=== PATIENT | female | born 1935 | race Two or more races ===

== ENCOUNTER 2019-12-12 08:54 | Day surgery (SDC) | payer OTHER, BC ==
[2019-12-08 15:52] VITALS: BMI 30.7
[2019-12-12 10:27] VITALS: TEMP 97.6
[2019-12-12 17:57] VITALS: BP 143/68; PULSE 83
== END 2019-12-12 10:55 | disposition home or self-care (01) ==
LOC: JASU-ENDO 08:54
PROVIDERS: ATTEND Internal Medicine Gastroenterology
PROC: 0DJD8ZZ Inspection of Lower Intestinal Tract, Via Natural or Artificial Opening Endoscopic (ICD-10-PCS; principal; 2019-12-12 09:00)
DX: D64.9 Anemia, unspecified (principal); K57.30 Diverticulosis of large intestine without perforation or abscess without bleeding; I10 Essential (primary) hypertension; E11.9 Type 2 diabetes mellitus without complications; K21.9 Gastro-esophageal reflux disease without esophagitis; E66.9 Obesity, unspecified

== ENCOUNTER 2021-02-04 10:17 | Inpatient (IN) | payer BC, OTHER ==
[2021-02-04] MEDS ORDERED: SODIUM CHLORIDE 1,000 ML IV STA (11:28)
[2021-02-04 11:52] LABS: BASO % 0.7 % (0-2.0); EOS % 0.4 % (0-4.5); HEMOGLOBIN 14.5 GM/dL (10.7-15.3); LYMPH % 8.9 % (8-40); MCHC 33.6 g/dl (32.0-36.0); MEAN CELL VOLUME 80.5 fl (80-96); MONO % 4.7 % (3.8-10.2); NEUT % 85.3 % (42.8-82.8); PLATELET COUNT 334 K/MM3 (134-434); RBC 5.35 M/mm3 (3.60-5.2); RDW 15.6 % (11.6-15.6)
[2021-02-04 12:12] LABS: CHLORIDE 90 mmol/L (98-107); POTASSIUM 4.7 mmol/L (3.5-5.1); SODIUM 126 mmol/L (136-145); WHITE BLOOD COUNT 12.9 K/mm3 (4.0-10.0)
[2021-02-04 12:15] LABS: ALBUMIN 3.9 g/dl (3.4-5.0); ANION GAP 12 MMOL/L (8-16); BLOOD UREA NITROGEN 8.8 mg/dL (7-18); CALCIUM 9.2 mg/dL (8.5-10.1); CO2 24 mmol/L (21-32); GLUCOSE,RANDOM 394 mg/dL (74-106); MAGNESIUM 1.8 mg/dL (1.8-2.4)
[2021-02-04 12:18] LABS: CREATININE 0.6 mg/dL (0.55-1.3); SGOT/AST 27 U/L (15-37); SGPT/ALT 14 U/L (13-61)
[2021-02-04 12:20] LABS: BILIRUBIN,TOTAL 1.3 mg/dL (0.2-1); TOT PROT 7.4 g/dl (6.4-8.2)
[2021-02-04 12:21] LABS: ALK PHOS 144 U/L (45-117)
[2021-02-04 12:47] LABS: PLATELET ESTIMATE NORMAL
[2021-02-04 13:09] LABS: BLOOD UREA NITROGEN 9.8 mg/dL (7-18); CALCIUM 9.2 mg/dL (8.5-10.1)
[2021-02-04 13:10] LABS: ALBUMIN 3.8 g/dl (3.4-5.0)
[2021-02-04 13:13] LABS: CREATININE 0.8 mg/dL (0.55-1.3)
[2021-02-04 13:14] LABS: BILIRUBIN,TOTAL 1.1 mg/dL (0.2-1); TOT PROT 7.8 g/dl (6.4-8.2)
[2021-02-04] MEDS ORDERED: LISINOPRIL 20 MG TABLET PO ONE (13:27)
[2021-02-04] MEDS ORDERED: ASPIRIN 81 MG CHEWABLE TABLETS PO ONE (13:27)
[2021-02-04] MEDS ORDERED: LISINOPRIL 20 MG TABLET ONE (13:29)
[2021-02-04] MEDS ORDERED: ASPIRIN COATED 81 MG TABLET.EC ONE (13:29)
[2021-02-04] MEDS ORDERED: ACETAMINOPHEN 1000 MG/100 ML VIAL (NON FORMULARY) IVPB ONE (13:36)
[2021-02-04] MEDS ORDERED: ACETAMINOPHEN INJECTION 100 ML IVPB ONE (13:48)
[2021-02-04 14:26] LABS: URINE APPEARANCE CLEAR; URINE BILIRUBIN NEGATIVE (NEGATIVE); URINE COLOR YELLOW; URINE GLUCOSE (UA) 3+ (NEGATIVE); URINE KETONE 3+ (NEGATIVE); URINE LEUK ESTERASE NEGATIVE (NEGATIVE); URINE NITRITE NEGATIVE (NEGATIVE); URINE PROTEIN TRACE (NEGATIVE); URINE UROBILINOGEN 0.2 mg/dL (0.2-1.0)
[2021-02-04] MEDS ORDERED: METOCLOPRAMIDE HCL INJECTION 10 MG/2 ML VIAL IVPUSH ONE (15:17)
[2021-02-04 15:33] LABS: POTASSIUM 7.5 mmol/L (3.5-5.1)
[2021-02-04] MEDS ORDERED: METOCLOPRAMIDE HCL INJECTION 10 MG/2 ML VIAL ONE (16:31)
[2021-02-04] MEDS: SODIUM CHLORIDE 0.45% 1,000 ML IV SCH (16:35)
[2021-02-04] MEDS: INSULIN SLIDING SCALE (NOVOLOG) 1 VIAL SQ SCH ×2 (16:35→22:58)
[2021-02-04] MEDS: ATORVASTATIN CA 40 MG TABLET (FP) PO SCH (22:50)
[2021-02-05] MEDS ORDERED: ACETAMINOPHEN 1000 MG/100 ML VIAL (NON FORMULARY) IVPB ONE (02:30)
[2021-02-05 04:20] VITALS: BMI 29.9
[2021-02-05] MEDS ORDERED: HALOPERIDOL LACTATE 5 MG/ML IM ONE (07:35)
[2021-02-05] MEDS ORDERED: LORazepam 2 MG/ML SDV VIAL IVPUSH PRN (09:22)
[2021-02-05] MEDS: ACETAMINOPHEN 1000 MG/100 ML VIAL (NON FORMULARY) IVPB PRN ×2 (09:28→18:05)
[2021-02-05] MEDS ORDERED: PNEUMOC 13-VAL CONJ-DIP CRM/PF 0.5 ML DISP.SYRIN IM ONE (10:00)
[2021-02-05] MEDS ORDERED: INSULIN (LEVEMIR) 100 UNITS/ML UNITS SQ SCH ×2 (10:00→22:00)
[2021-02-05] MEDS ORDERED: FLU VACCINE (FLULAVAL) PF 60 MCG/0.5 ML SYRINGE 2020-2021 IM ONE (10:00)
[2021-02-05] MEDS: INSULIN SLIDING SCALE (NOVOLOG) 1 VIAL SQ SCH (12:00)
[2021-02-05] MEDS: LISINOPRIL 20 MG TABLET PO SCH (14:14)
[2021-02-05] MEDS: ENOXAPARIN NA (PORCINE) 40 MG/0.4 ML DISP.SYRIN SQ SCH (14:17)
[2021-02-05] MEDS: ASPIRIN 81 MG CHEWABLE TABLETS PO SCH (14:17)
[2021-02-05] MEDS ORDERED: LORazepam 2 MG/ML SDV VIAL ONE (16:14)
[2021-02-05] MEDS ORDERED: LORazepam 2 MG/ML SDV VIAL IVPUSH ONE (16:24)
[2021-02-05] MEDS: SODIUM CHLORIDE 0.45% 1,000 ML IV SCH (17:46)
[2021-02-05 19:27] LABS: BASO % 0.8 % (0-2.0); EOS % 0.6 % (0-4.5); HEMATOCRIT 42.3 % (32.4-45.2); HEMOGLOBIN 13.9 GM/dL (10.7-15.3); LYMPH % 17.4 % (8-40); MCHC 32.9 g/dl (32.0-36.0); MEAN PLT VOLUME 9.7 fl (7.5-11.1); MONO % 7.9 % (3.8-10.2); NEUT % 73.3 % (42.8-82.8); PLATELET COUNT 341 K/MM3 (134-434); RBC 5.15 M/mm3 (3.60-5.2); RDW 15.4 % (11.6-15.6)
[2021-02-05 19:29] LABS: CALCIUM 8.4 mg/dL (8.5-10.1); CHLORIDE 95 mmol/L (98-107); SODIUM 122 mmol/L (136-145)
[2021-02-05 19:30] LABS: BLOOD UREA NITROGEN 5.5 mg/dL (7-18); CO2 20 mmol/L (21-32); GLUCOSE,RANDOM 248 mg/dL (74-106); MAGNESIUM 1.8 mg/dL (1.8-2.4)
[2021-02-05 19:33] LABS: CREATININE 0.7 mg/dL (0.55-1.3); PHOSPHOROUS 2.8 mg/dL (2.5-4.9)
[2021-02-05 19:37] LABS: ANION GAP 7 MMOL/L (8-16)
[2021-02-05] MEDS: QUEtiapine FUMARATE 25 MG TABLET PO SCH ×3 (21:11→22:00)
[2021-02-05] MEDS: ATORVASTATIN CA 40 MG TABLET (FP) PO SCH ×2 (21:11→21:27)
[2021-02-05] MEDS: LORazepam 0.5 MG TABLET PO PRN (23:47)
[2021-02-05 23:54] LABS: POTASSIUM 3.7 mmol/L (3.5-5.1)
[2021-02-05 23:57] LABS: CALCIUM 8.9 mg/dL (8.5-10.1)
[2021-02-05 23:58] LABS: ALBUMIN 3.3 g/dl (3.4-5.0)
[2021-02-06 00:01] LABS: CREATININE 0.6 mg/dL (0.55-1.3)
[2021-02-06 00:03] LABS: BILIRUBIN,TOTAL 0.8 mg/dL (0.2-1); TOT PROT 6.6 g/dl (6.4-8.2)
[2021-02-06] MEDS: INSULIN (LEVEMIR) 100 UNITS/ML UNITS SQ SCH (05:59)
[2021-02-06] MEDS: INSULIN SLIDING SCALE (NOVOLOG) 1 VIAL SQ SCH ×3 (06:01→17:48)
[2021-02-06 08:47] LABS: HEMATOCRIT 41.8 % (32.4-45.2); HEMOGLOBIN 13.7 GM/dL (10.7-15.3); MCH 26.9 pg (25.7-33.7); MCHC 32.9 g/dl (32.0-36.0); MEAN CELL VOLUME 81.7 fl (80-96); MEAN PLT VOLUME 9.5 fl (7.5-11.1); PLATELET COUNT 320 K/MM3 (134-434); RBC 5.11 M/mm3 (3.60-5.2); RDW 15.7 % (11.6-15.6); WHITE BLOOD COUNT 10.3 K/mm3 (4.0-10.0)
[2021-02-06 09:11] LABS: POTASSIUM 3.7 mmol/L (3.5-5.1)
[2021-02-06 09:13] LABS: CALCIUM 9.2 mg/dL (8.5-10.1)
[2021-02-06 09:14] LABS: ALBUMIN 3.3 g/dl (3.4-5.0); BLOOD UREA NITROGEN 4.4 mg/dL (7-18)
[2021-02-06 09:15] LABS: MAGNESIUM 1.7 mg/dL (1.8-2.4)
[2021-02-06 09:17] LABS: CREATININE 0.5 mg/dL (0.55-1.3)
[2021-02-06 09:18] LABS: BILIRUBIN,TOTAL 1.1 mg/dL (0.2-1); TOT PROT 6.7 g/dl (6.4-8.2)
[2021-02-06] MEDS: LORazepam 0.5 MG TABLET PO PRN (10:26)
[2021-02-06] MEDS: LISINOPRIL 20 MG TABLET PO SCH (10:26)
[2021-02-06] MEDS: ASPIRIN 81 MG CHEWABLE TABLETS PO SCH (10:27)
[2021-02-06] MEDS: ENOXAPARIN NA (PORCINE) 40 MG/0.4 ML DISP.SYRIN SQ SCH (10:27)
[2021-02-06] MEDS ORDERED: MAGNESIUM OXIDE 400 MG TABLET (FP) PO ONE (12:06)
[2021-02-06] MEDS ORDERED: NAPH,MB-DB/K PH,MBDB POWDER PACKET PO ONE (12:07)
[2021-02-06] MEDS ORDERED: ACETAMINOPHEN 1000 MG/100 ML VIAL (NON FORMULARY) IVPB PRN (13:20)
[2021-02-06] MEDS ORDERED: PT OWN MED DRAWER 7, Y5N ONE (13:59)
[2021-02-06] MEDS: ACETAMINOPHEN 325 MG TABLET (FP) PO PRN (16:26)
[2021-02-06] MEDS: ATORVASTATIN CA 40 MG TABLET (FP) PO SCH (22:21)
[2021-02-07] MEDS: INSULIN (LEVEMIR) 100 UNITS/ML UNITS SQ SCH (06:30)
[2021-02-07] MEDS: INSULIN SLIDING SCALE (NOVOLOG) 1 VIAL SQ SCH ×2 (06:31→12:20)
[2021-02-07 07:45] LABS: HEMATOCRIT 42.2 % (32.4-45.2); HEMOGLOBIN 14.1 GM/dL (10.7-15.3); MCH 27.3 pg (25.7-33.7); MCHC 33.4 g/dl (32.0-36.0); MEAN CELL VOLUME 81.8 fl (80-96); MEAN PLT VOLUME 9.4 fl (7.5-11.1); PLATELET COUNT 311 K/MM3 (134-434); RBC 5.16 M/mm3 (3.60-5.2); RDW 15.7 % (11.6-15.6); WHITE BLOOD COUNT 9.6 K/mm3 (4.0-10.0)
[2021-02-07 08:17] LABS: ALBUMIN 3.1 g/dl (3.4-5.0)
[2021-02-07 08:18] LABS: CALCIUM 8.9 mg/dL (8.5-10.1); MAGNESIUM 1.9 mg/dL (1.8-2.4)
[2021-02-07 08:20] LABS: BILIRUBIN,TOTAL 1.2 mg/dL (0.2-1)
[2021-02-07 08:21] LABS: CREATININE 0.5 mg/dL (0.55-1.3); PHOSPHOROUS 2.6 mg/dL (2.5-4.9); TOT PROT 6.6 g/dl (6.4-8.2)
[2021-02-07] MEDS: LISINOPRIL 20 MG TABLET PO SCH (10:30)
[2021-02-07] MEDS: ENOXAPARIN NA (PORCINE) 40 MG/0.4 ML DISP.SYRIN SQ SCH (10:30)
[2021-02-07] MEDS: ASPIRIN 81 MG CHEWABLE TABLETS PO SCH (10:30)
[2021-02-07] MEDS: ACETAMINOPHEN 325 MG TABLET (FP) PO PRN ×2 (11:00→19:11)
[2021-02-07] MEDS ORDERED: amLODIPine BESYLATE 2.5 MG TABLET (FP) PO ONE (17:59)
[2021-02-07] MEDS: ATORVASTATIN CA 40 MG TABLET (FP) PO SCH (21:04)
[2021-02-07] MEDS ORDERED: INSULIN (LEVEMIR) 100 UNITS/ML UNITS SQ SCH ×2 (22:00)
[2021-02-08] MEDS: ACETAMINOPHEN 325 MG TABLET (FP) PO PRN ×3 (03:27→15:33)
[2021-02-08] MEDS: INSULIN (LEVEMIR) 100 UNITS/ML UNITS SQ SCH (06:30)
[2021-02-08] MEDS: INSULIN SLIDING SCALE (NOVOLOG) 1 VIAL SQ SCH ×4 (06:30→17:04)
[2021-02-08 08:04] LABS: HEMATOCRIT 41.7 % (32.4-45.2); HEMOGLOBIN 13.7 GM/dL (10.7-15.3); MCH 26.9 pg (25.7-33.7); MCHC 32.9 g/dl (32.0-36.0); MEAN CELL VOLUME 81.9 fl (80-96); MEAN PLT VOLUME 9.9 fl (7.5-11.1); PLATELET COUNT 281 K/MM3 (134-434); RDW 15.4 % (11.6-15.6); WHITE BLOOD COUNT 9.6 K/mm3 (4.0-10.0)
[2021-02-08 08:28] LABS: POTASSIUM 3.4 mmol/L (3.5-5.1)
[2021-02-08 08:37] LABS: BLOOD UREA NITROGEN 8.2 mg/dL (7-18); CALCIUM 9.3 mg/dL (8.5-10.1)
[2021-02-08 08:38] LABS: MAGNESIUM 1.6 mg/dL (1.8-2.4)
[2021-02-08 08:41] LABS: CREATININE 0.5 mg/dL (0.55-1.3); PHOSPHOROUS 2.9 mg/dL (2.5-4.9)
[2021-02-08] MEDS: ASPIRIN 81 MG CHEWABLE TABLETS PO SCH (09:26)
[2021-02-08] MEDS: LISINOPRIL 20 MG TABLET PO SCH (09:26)
[2021-02-08] MEDS: ENOXAPARIN NA (PORCINE) 40 MG/0.4 ML DISP.SYRIN SQ SCH (09:28)
[2021-02-08] MEDS ORDERED: amLODIPine BESYLATE 5 MG TABLET (FP) PO SCH (10:00)
[2021-02-08] MEDS ORDERED: IBUPROFEN 400 MG TABLET (FP) PO ONE (11:40)
[2021-02-08 20:46] VITALS: BP 128/53; PULSE 79; TEMP 98
== END 2021-02-08 20:15 | DRG 65 ==
LOC: JER 10:17 → JERBED 16:03 → J4W 20:31
PROVIDERS: ADMIT Internal Medicine; ATTEND Internal Medicine
DX: I63.89 Other cerebral infarction (principal); F05 Delirium due to known physiological condition; E87.1 Hypo-osmolality and hyponatremia; G81.94 Hemiplegia, unspecified affecting left nondominant side; I16.1 Hypertensive emergency; I10 Essential (primary) hypertension; E78.5 Hyperlipidemia, unspecified; E11.65 Type 2 diabetes mellitus with hyperglycemia; D72.829 Elevated white blood cell count, unspecified; R29.705 NIHSS score 5
CPT/HCPCS: 36415; 70450-TC; 70551-TC; 71045-TC-FY; 80048; 80053; 80061; 81003; 82550; 82962; 83036; 83721; 83735; 84100; 84484; 85025; 85027; 87086; 93005; 93010; 93306-TC; 93880-TC; 97116-GP; 97162-GP; 99285-25; C9803; J0131; U0003

== ENCOUNTER 2021-02-10 11:09 | Inpatient (IN) | payer OTHER, BC ==
[2021-02-10 11:22] VITALS: BMI 29.2
[2021-02-10] MEDS ORDERED: LORazepam 2 MG/ML SDV VIAL ONE (11:38)
[2021-02-10] MEDS ORDERED: LORazepam 2 MG/ML SDV VIAL IVPUSH ONE (11:38)
[2021-02-10] MEDS ORDERED: levETIRAcetam 500 MG/5 ML INJECTION VIAL IVPB ONE ×2 (12:01→12:20)
[2021-02-10 13:01] LABS: BASO % 0.6 % (0-2.0); EOS % 2.7 % (0-4.5); HEMOGLOBIN 14.8 GM/dL (10.7-15.3); LYMPH % 12.2 % (8-40); MCH 27.3 pg (25.7-33.7); MCHC 32.9 g/dl (32.0-36.0); MEAN CELL VOLUME 82.9 fl (80-96); MEAN PLT VOLUME 9.7 fl (7.5-11.1); MONO % 6.9 % (3.8-10.2); NEUT % 77.6 % (42.8-82.8); PLATELET COUNT 377 K/MM3 (134-434); RBC 5.43 M/mm3 (3.60-5.2); RDW 15.6 % (11.6-15.6); WHITE BLOOD COUNT 8.4 K/mm3 (4.0-10.0)
[2021-02-10 13:28] LABS: ALBUMIN 3.4 g/dl (3.4-5.0); ANION GAP 9 MMOL/L (8-16); BLOOD UREA NITROGEN 7.1 mg/dL (7-18); CALCIUM 9.5 mg/dL (8.5-10.1); CHLORIDE 101 mmol/L (98-107); CO2 26 mmol/L (21-32); GLUCOSE,RANDOM 334 mg/dL (74-106); MAGNESIUM 1.7 mg/dL (1.8-2.4); POTASSIUM 3.8 mmol/L (3.5-5.1); SODIUM 136 mmol/L (136-145)
[2021-02-10 13:33] LABS: BILIRUBIN,TOTAL 0.7 mg/dL (0.2-1); CREATININE 0.7 mg/dL (0.55-1.3); PHOSPHOROUS 3.7 mg/dL (2.5-4.9); SGOT/AST 44 U/L (15-37); SGPT/ALT 35 U/L (13-61); TOT PROT 7.3 g/dl (6.4-8.2)
[2021-02-10 13:35] LABS: ALK PHOS 155 U/L (45-117)
[2021-02-10] MEDS ORDERED: SODIUM CHLORIDE 1,000 ML IV SCH (15:45)
[2021-02-10] MEDS ORDERED: MAGNESIUM SULF 50% (8.12 MEQ/2 ML-1 GM VIAL) IVPB ONE (15:55)
[2021-02-10] MEDS: INSULIN (LEVEMIR) 100 UNITS/ML UNITS SQ SCH (16:14)
[2021-02-10] MEDS: ENOXAPARIN NA (PORCINE) 40 MG/0.4 ML DISP.SYRIN SQ SCH (16:14)
[2021-02-10] MEDS: INSULIN SLIDING SCALE (NOVOLOG) 1 VIAL SQ SCH ×2 (16:15→21:23)
[2021-02-10] MEDS: LISINOPRIL 20 MG TABLET PO SCH (16:16)
[2021-02-10] MEDS: ASPIRIN COATED 81 MG TABLET.EC PO SCH (16:16)
[2021-02-10] MEDS: amLODIPine BESYLATE 5 MG TABLET (FP) PO SCH (16:16)
[2021-02-10] MEDS ORDERED: ENOXAPARIN NA (PORCINE) 40 MG/0.4 ML DISP.SYRIN SQ ONE (16:21)
[2021-02-10] MEDS ORDERED: INSULIN SLIDING SCALE (NOVOLOG) 1 VIAL SQ ONE (16:21)
[2021-02-10] MEDS ORDERED: INSULIN (LEVEMIR) 100 UNITS/ML UNITS SQ ONE (16:21)
[2021-02-10] MEDS ORDERED: MAGNESIUM 1GM/D5W - 1 GM/100 ML IVPB IVPB ONE (16:21)
[2021-02-10] MEDS: ATORVASTATIN CA 40 MG TABLET (FP) PO SCH (21:24)
[2021-02-11 06:28] LABS: BASO % 1.1 % (0-2.0); HEMATOCRIT 43.7 % (32.4-45.2); HEMOGLOBIN 14.5 GM/dL (10.7-15.3); LYMPH % 22.3 % (8-40); MCH 27.2 pg (25.7-33.7); MCHC 33.2 g/dl (32.0-36.0); MEAN CELL VOLUME 81.9 fl (80-96); MONO % 6.9 % (3.8-10.2); NEUT % 64.7 % (42.8-82.8); PLATELET COUNT 355 K/MM3 (134-434); RBC 5.33 M/mm3 (3.60-5.2); RDW 15.7 % (11.6-15.6); WHITE BLOOD COUNT 9.8 K/mm3 (4.0-10.0)
[2021-02-11] MEDS: INSULIN SLIDING SCALE (NOVOLOG) 1 VIAL SQ SCH ×4 (06:34→21:52)
[2021-02-11 07:03] LABS: POTASSIUM 3.7 mmol/L (3.5-5.1)
[2021-02-11 07:08] LABS: CALCIUM 9.2 mg/dL (8.5-10.1)
[2021-02-11 07:11] LABS: CREATININE 0.5 mg/dL (0.55-1.3); PHOSPHOROUS 4.2 mg/dL (2.5-4.9)
[2021-02-11 07:12] LABS: BILIRUBIN,TOTAL 0.6 mg/dL (0.2-1); TOT PROT 6.4 g/dl (6.4-8.2)
[2021-02-11] MEDS: INSULIN (LEVEMIR) 100 UNITS/ML UNITS SQ SCH (07:38)
[2021-02-11] MEDS: ASPIRIN COATED 81 MG TABLET.EC PO SCH (09:21)
[2021-02-11] MEDS: levETIRAcetam 500 MG/5 ML INJECTION VIAL IVPB SCH (09:21)
[2021-02-11] MEDS: amLODIPine BESYLATE 5 MG TABLET (FP) PO SCH (09:21)
[2021-02-11] MEDS: ENOXAPARIN NA (PORCINE) 40 MG/0.4 ML DISP.SYRIN SQ SCH (09:21)
[2021-02-11] MEDS: LISINOPRIL 20 MG TABLET PO SCH (09:21)
[2021-02-11] MEDS ORDERED: levETIRAcetam 500 MG/5 ML INJECTION VIAL IVPB SCH (10:00)
[2021-02-11] MEDS: ACETAMINOPHEN 325 MG TABLET (FP) PO PRN (17:12)
[2021-02-11] MEDS: ATORVASTATIN CA 40 MG TABLET (FP) PO SCH (21:50)
[2021-02-12] MEDS: INSULIN (LEVEMIR) 100 UNITS/ML UNITS SQ SCH (06:47)
[2021-02-12] MEDS: INSULIN SLIDING SCALE (NOVOLOG) 1 VIAL SQ SCH ×4 (06:48→22:01)
[2021-02-12] MEDS: levETIRAcetam 500 MG/5 ML INJECTION VIAL IVPB SCH (10:16)
[2021-02-12] MEDS: amLODIPine BESYLATE 5 MG TABLET (FP) PO SCH (10:17)
[2021-02-12] MEDS: ENOXAPARIN NA (PORCINE) 40 MG/0.4 ML DISP.SYRIN SQ SCH (10:17)
[2021-02-12] MEDS: LISINOPRIL 20 MG TABLET PO SCH (10:18)
[2021-02-12] MEDS: ASPIRIN COATED 81 MG TABLET.EC PO SCH (10:18)
[2021-02-12 14:38] LABS: HEMATOCRIT 41.8 % (32.4-45.2); HEMOGLOBIN 13.7 GM/dL (10.7-15.3); MCH 27.1 pg (25.7-33.7); MCHC 32.7 g/dl (32.0-36.0); MEAN CELL VOLUME 83.1 fl (80-96); MEAN PLT VOLUME 9.1 fl (7.5-11.1); PLATELET COUNT 289 K/MM3 (134-434); RBC 5.04 M/mm3 (3.60-5.2); RDW 15.6 % (11.6-15.6); WHITE BLOOD COUNT 7.6 K/mm3 (4.0-10.0)
[2021-02-12 14:53] LABS: ALBUMIN 3.1 g/dl (3.4-5.0); BLOOD UREA NITROGEN 8.1 mg/dL (7-18); CALCIUM 8.7 mg/dL (8.5-10.1)
[2021-02-12 14:57] LABS: CREATININE 0.6 mg/dL (0.55-1.3)
[2021-02-12 14:58] LABS: BILIRUBIN,TOTAL 0.8 mg/dL (0.2-1); TOT PROT 6.3 g/dl (6.4-8.2)
[2021-02-12] MEDS: ACETAMINOPHEN 325 MG TABLET (FP) PO PRN (18:19)
[2021-02-12] MEDS: ATORVASTATIN CA 40 MG TABLET (FP) PO SCH (22:01)
[2021-02-13] MEDS: INSULIN SLIDING SCALE (NOVOLOG) 1 VIAL SQ SCH ×2 (06:12→12:33)
[2021-02-13] MEDS: INSULIN (LEVEMIR) 100 UNITS/ML UNITS SQ SCH (06:12)
[2021-02-13] MEDS: levETIRAcetam 500 MG/5 ML INJECTION VIAL IVPB SCH (10:00)
[2021-02-13] MEDS: ENOXAPARIN NA (PORCINE) 40 MG/0.4 ML DISP.SYRIN SQ SCH (10:25)
[2021-02-13] MEDS: LISINOPRIL 20 MG TABLET PO SCH (10:25)
[2021-02-13] MEDS: amLODIPine BESYLATE 5 MG TABLET (FP) PO SCH (10:25)
[2021-02-13] MEDS: ASPIRIN COATED 81 MG TABLET.EC PO SCH (10:25)
[2021-02-13] MEDS ORDERED: levETIRAcetam 250 MG TABLET PO ONE (12:40)
[2021-02-13 14:59] VITALS: BP 144/59; PULSE 77; TEMP 97.9
== END 2021-02-13 16:18 | disposition home or self-care (01) | DRG 57 ==
LOC: JER 11:09 → JERBED 14:04 → J4W 19:20
PROVIDERS: ADMIT Internal Medicine
DX: I69.90 Unspecified sequelae of unspecified cerebrovascular disease (principal); G81.94 Hemiplegia, unspecified affecting left nondominant side; R56.9 Unspecified convulsions; I10 Essential (primary) hypertension; E78.5 Hyperlipidemia, unspecified; E11.65 Type 2 diabetes mellitus with hyperglycemia
CPT/HCPCS: 36415; 70450-TC; 71045-TC-FY; 80053; 82550; 82553; 82962; 83735; 84100; 84484; 85025; 85027; 93005; 93010; 95816; 97116-GP; 97162-GP; 99291; C9803; U0003

== ENCOUNTER 2023-01-03 03:38 | Inpatient (IN) | payer OTHER, BC ==
[2023-01-03] MEDS ORDERED: ACETAMINOPHEN 1000 MG/100 ML BAG IVPB ONE (04:10)
[2023-01-03] MEDS ORDERED: METOCLOPRAMIDE HCL INJECTION 10 MG/2 ML VIAL IVPB ONE (04:10)
[2023-01-03] MEDS ORDERED: ACETAMINOPHEN INJECTION 100 ML IVPB ONE (04:11)
[2023-01-03] MEDS ORDERED: METOCLOPRAMIDE HCL INJECTION 10 MG/2 ML VIAL ONE (04:23)
[2023-01-03 04:41] LABS: BASO % 0.8 % (0-2.0); EOS % 3.7 % (0-4.5); HEMATOCRIT 37.9 % (32.4-45.2); HEMOGLOBIN 12.6 GM/dL (10.7-15.3); MCH 27.8 pg (25.7-33.7); MCHC 33.2 g/dl (32.0-36.0); MEAN CELL VOLUME 83.6 fl (80-96); MONO % 6.5 % (3.8-10.2); PLATELET COUNT 270 10^3/uL (134-434); RBC 4.54 M/mm3 (3.60-5.2); RDW 14.5 % (11.6-15.6); WHITE BLOOD COUNT 9.5 K/mm3 (4.0-10.0)
[2023-01-03 04:49] LABS: INR 1.04 (0.83-1.09); PROTHROMBIN TIME (PATIENT) 12.1 SEC (9.7-13.0)
[2023-01-03 04:50] LABS: ACTIVATED PTT 26.3 SECONDS (25.2-36.5)
[2023-01-03] MEDS ORDERED: DIPHTH,PERTUSS(ACELL),TET 0.5 ML DISP.SYRIN IM ONE ×2 (04:50→04:52)
[2023-01-03 05:00] LABS: ALBUMIN 3.6 g/dl (3.4-5.0); CALCIUM 9.2 mg/dL (8.5-10.1)
[2023-01-03 05:02] LABS: BLOOD UREA NITROGEN 15.4 mg/dL (7-18)
[2023-01-03 05:04] LABS: CREATININE 0.7 mg/dL (0.55-1.3)
[2023-01-03 05:06] LABS: BILIRUBIN,TOTAL 0.6 mg/dL (0.2-1)
[2023-01-03] MEDS ORDERED: KETOROLAC TROMETHAMINE 30 MG/1 ML VIAL IVPUSH ONE (06:04)
[2023-01-03] MEDS ORDERED: DEXAMETHASONE SOD PHOSPHATE 10 MG/1 ML VIAL IVPUSH ONE (06:05)
[2023-01-03] MEDS ORDERED: KETOROLAC TROMETHAMINE 15 MG/ML VIAL ONE (06:20)
[2023-01-03] MEDS ORDERED: DEXAMETHASONE SOD PHOSPHATE 10 MG/1 ML VIAL ONE (06:20)
[2023-01-03 06:51] LABS: CALCIUM 8.9 mg/dL (8.5-10.1)
[2023-01-03 06:52] LABS: BLOOD UREA NITROGEN 13.4 mg/dL (7-18)
[2023-01-03 06:55] LABS: CREATININE 0.7 mg/dL (0.55-1.3)
[2023-01-03] MEDS ORDERED: ASPIRIN COATED 81 MG TABLET.EC PO ONE (06:55)
[2023-01-03] MEDS ORDERED: ASPIRIN COATED 81 MG TABLET.EC ONE (07:15)
[2023-01-03] MEDS ORDERED: LISINOPRIL 20 MG TABLET PO SCH (10:15)
[2023-01-03 11:42] VITALS: BMI 27.4
[2023-01-03] MEDS: INSULIN (NOVOLOG) ASPART 100 UNITS/ML 10ML VIAL SQ SCH ×2 (12:57→16:52)
[2023-01-03] MEDS: CEFTRIAXONE 1 GM in DEXTROSE 5%-WATER - 50 ML IVPB SCH ×2 (12:58→15:41)
[2023-01-03] MEDS: amLODIPine BESYLATE 5 MG TABLET (FP) PO SCH (12:58)
[2023-01-03] MEDS: levETIRAcetam 500 MG TABLET (FP) PO SCH (12:58)
[2023-01-03] MEDS: ESCITALOPRAM OXALATE 10 MG TABLET PO SCH (12:59)
[2023-01-03] MEDS ORDERED: metFORMIN HCL 500 MG TABLET (FP) PO SCH (16:30)
[2023-01-03] MEDS: metFORMIN HCL 500 MG TABLET (FP) PO SCH (17:37)
[2023-01-03 17:44] LABS: PH,URINE 5.5 (5.0-8.0); URINE APPEARANCE Clear; URINE BILIRUBIN Negative (NEGATIVE); URINE COLOR Yellow; URINE GLUCOSE (UA) 250 (NEGATIVE); URINE KETONE 15 mg/dl (NEGATIVE); URINE LEUK ESTERASE Negative (NEGATIVE); URINE NITRITE Negative (NEGATIVE); URINE PROTEIN Negative (NEGATIVE); URINE UROBILINOGEN 0.2 mg/dL (0.2-1.0)
[2023-01-03] MEDS: ATORVASTATIN CA 40 MG TABLET (FP) PO SCH (22:47)
[2023-01-03] MEDS: HEPARIN NA (PORCINE) 5,000 UNITS/ML 1ML VIAL SQ SCH (22:47)
[2023-01-04] MEDS: metFORMIN HCL 500 MG TABLET (FP) PO SCH ×2 (06:47→17:02)
[2023-01-04] MEDS: INSULIN (NOVOLOG) ASPART 100 UNITS/ML 10ML VIAL SQ SCH ×3 (06:47→18:01)
[2023-01-04] MEDS: amLODIPine BESYLATE 5 MG TABLET (FP) PO SCH (09:58)
[2023-01-04] MEDS: LISINOPRIL 5 MG TABLET PO SCH (09:59)
[2023-01-04] MEDS ORDERED: ACETAMINOPHEN 325 MG TABLET (FP) PO PRN (09:59)
[2023-01-04] MEDS: ESCITALOPRAM OXALATE 10 MG TABLET PO SCH (09:59)
[2023-01-04] MEDS: levETIRAcetam 500 MG TABLET (FP) PO SCH (09:59)
[2023-01-04] MEDS ORDERED: ASPIRIN COATED 81 MG TABLET.EC PO SCH (10:00)
[2023-01-04] MEDS: HEPARIN NA (PORCINE) 5,000 UNITS/ML 1ML VIAL SQ SCH ×2 (10:00→21:11)
[2023-01-04] MEDS: CEFTRIAXONE 1 GM in DEXTROSE 5%-WATER - 50 ML IVPB SCH (10:00)
[2023-01-04] MEDS ORDERED: SODIUM CHLORIDE 1,000 ML IV SCH (13:15)
[2023-01-04] MEDS: ACETAMINOPHEN 1000 MG/100 ML BAG IVPB PRN ×2 (14:45→20:44)
[2023-01-04] MEDS ORDERED: MELATONIN 5 MG TABLETS PO PRN (20:51)
[2023-01-04] MEDS: ATORVASTATIN CA 40 MG TABLET (FP) PO SCH (21:11)
[2023-01-05] MEDS ORDERED: MELATONIN 5 MG TABLETS PO ONE (02:08)
[2023-01-05] MEDS: ACETAMINOPHEN 1000 MG/100 ML BAG IVPB PRN (03:00)
[2023-01-05] MEDS: metFORMIN HCL 500 MG TABLET (FP) PO SCH (07:06)
[2023-01-05] MEDS: INSULIN (NOVOLOG) ASPART 100 UNITS/ML 10ML VIAL SQ SCH ×2 (07:07→11:00)
[2023-01-05] MEDS: HEPARIN NA (PORCINE) 5,000 UNITS/ML 1ML VIAL SQ SCH (09:32)
[2023-01-05] MEDS: ESCITALOPRAM OXALATE 10 MG TABLET PO SCH (09:40)
[2023-01-05] MEDS: amLODIPine BESYLATE 5 MG TABLET (FP) PO SCH (09:40)
[2023-01-05] MEDS: LISINOPRIL 5 MG TABLET PO SCH (09:40)
[2023-01-05] MEDS ORDERED: levETIRAcetam 250 MG TABLET PO SCH ×3 (10:00)
[2023-01-05] MEDS ORDERED: ASPIRIN 81 MG CHEWABLE TABLETS PO SCH (10:00)
[2023-01-05] MEDS ORDERED: ACETAMINOPHEN 325 MG TABLET (FP) PO PRN (12:43)
[2023-01-05 13:59] VITALS: BP 149/62; PULSE 85; RESP 20; TEMP 97.8
== END 2023-01-05 16:17 | disposition home health service (06) | DRG 64 ==
LOC: JER 03:38 → JERBED 05:17 → J4W 12:22
PROVIDERS: ADMIT Internal Medicine
DX: I63.89 Other cerebral infarction (principal); G93.41 Metabolic encephalopathy; E87.1 Hypo-osmolality and hyponatremia; I10 Essential (primary) hypertension; E78.5 Hyperlipidemia, unspecified; E11.40 Type 2 diabetes mellitus with diabetic neuropathy, unspecified; R29.704 NIHSS score 4; Z79.84 Long term (current) use of oral hypoglycemic drugs; R51.9 Headache, unspecified; S01.111A Laceration without foreign body of right eyelid and periocular area, initial encounter; Y99.8 Other external cause status; E87.5 Hyperkalemia; W06.XXXA Fall from bed, initial encounter; Y92.003 Bedroom of unspecified non-institutional (private) residence as the place of occurrence of the external cause; Y93.89 Activity, other specified
CPT/HCPCS: 0241U-QW; 36415; 70450-TC; 70496-TC; 70498-TC; 70544-TC; 70551-TC; 71045-TC-FY; 72125-TC; 72170-TC-FY; 80048; 80053; 80061; 80177; 81003; 82140; 82550; 82607; 82962; 83036; 84439; 84443; 84484; 85025; 85610; 85730; 87086; 90715; 93005; 93010; 93306-TC; 95816; 97116-GP; 97162-GP; 99285-25; J1100; J1644

== ENCOUNTER 2023-01-07 14:14 | Emergency (ER) | payer OTHER, BC ==
[2023-01-07] MEDS ORDERED: SODIUM CHLORIDE 1,000 ML IV SCH (14:30)
[2023-01-07 15:31] VITALS: RESP 18; BMI 26.5
[2023-01-07] MEDS ORDERED: ACETAMINOPHEN 1000 MG/100 ML BAG IVPB ONE (15:46)
[2023-01-07 15:57] LABS: BASO % 0.8 % (0-2.0); EOS % 1.2 % (0-4.5); HEMATOCRIT 38.9 % (32.4-45.2); HEMOGLOBIN 12.9 GM/dL (10.7-15.3); LYMPH % 15.7 % (8-40); MCH 27.9 pg (25.7-33.7); MCHC 33.3 g/dl (32.0-36.0); MEAN CELL VOLUME 83.7 fl (80-96); MEAN PLT VOLUME 9.6 fl (7.5-11.1); MONO % 7.2 % (3.8-10.2); NEUT % 75.1 % (42.8-82.8); PLATELET COUNT 255 10^3/uL (134-434); RBC 4.64 M/mm3 (3.60-5.2); RDW 14.4 % (11.6-15.6); WHITE BLOOD COUNT 12.9 K/mm3 (4.0-10.0)
[2023-01-07 16:09] LABS: INR 1.12 (0.83-1.09)
[2023-01-07 16:11] LABS: ACTIVATED PTT 24.4 SECONDS (25.2-36.5)
[2023-01-07] MEDS ORDERED: METOCLOPRAMIDE HCL INJECTION 10 MG/2 ML VIAL IVPB ONE (16:15)
[2023-01-07 16:26] LABS: CALCIUM 9.4 mg/dL (8.5-10.1)
[2023-01-07 16:27] LABS: ALBUMIN 3.6 g/dl (3.4-5.0)
[2023-01-07 16:28] LABS: BLOOD UREA NITROGEN 14.3 mg/dL (7-18)
[2023-01-07 16:30] LABS: CREATININE 0.8 mg/dL (0.55-1.3)
[2023-01-07 16:32] LABS: TOT PROT 6.8 g/dl (6.4-8.2)
[2023-01-07 16:33] LABS: BILIRUBIN,TOTAL 0.7 mg/dL (0.2-1)
[2023-01-07] MEDS ORDERED: METOCLOPRAMIDE HCL INJECTION 10 MG/2 ML VIAL ONE (16:34)
[2023-01-07] MEDS ORDERED: ACETAMINOPHEN INJECTION 100 ML IVPB ONE (16:35)
[2023-01-07] MEDS ORDERED: TETRACAINE 0.5% HCL 0.6ML DROPPER.BOTTLE OD ONE (16:38)
[2023-01-07] MEDS ORDERED: TETRACAINE 0.5% OPHTH SOLN 2 ML BOTTLE ONE (17:22)
[2023-01-07 21:05] VITALS: BP 114/58; PULSE 78; TEMP 98.7
== END 2023-01-07 21:00 | disposition short-term general hospital (02) ==
LOC: JER 14:14
PROC: 3E0333Z Introduction of Anti-inflammatory into Peripheral Vein, Percutaneous Approach (ICD-10-PCS; principal; 2023-01-07)
PROC: 3E033GC Introduction of Other Therapeutic Substance into Peripheral Vein, Percutaneous Approach (ICD-10-PCS; 2023-01-07)
DX: H53.123 Transient visual loss, bilateral (principal); I63.9 Cerebral infarction, unspecified
CPT/HCPCS: 0241U-QW; 36415; 70450-TC; 74177-TC; 76512; 80053; 80061; 82550; 82962; 83036; 84484; 85025; 85610; 85651; 85730; 86850; 86900; 86901; 93005; 93010; 99285-25